=== PATIENT | female | born 1970 | race Caucasian/White ===

== ENCOUNTER 2022-08-04 11:57 | Day surgery (SDC) | payer BC, SELFPAY ==
[2022-07-29 15:32] VITALS: BMI 31.6
[2022-08-04 12:28] VITALS: BMI 31.2
[2022-08-04 12:36] VITALS: BP 119/66; PULSE 69; RESP 16; TEMP 36.8; O2SAT 97
--- NOTE | 2022-08-04 12:58 | HO.ANESPROP2 ---
HPI - Anesthesia Eval Consult details Narrative: for colonoscopy FOR[facility], LAT[facility] Past Medical History Medical History (Updated 07/29/22 @ 15:26 by Emerald Goode RN) Anaplasmosis Diverticulosis Hypercholesterolemia Varicose veins of legs Family History Family history of problems with anesthesia: No Surgical History Surgical History (Updated 07/29/22 @ 15:26 by Emerald Goode RN) No pertinent past surgical history History of Problems with Anesthesia: No Social History Social History Patient Tobacco Use Status: Former Tobacco user Quit Date: 2006 Tobacco use type: Cigarette Cigarettes Per Day: 20 Years Smoked: 18 Smoked in Last 30 Days: No Use of substances other than those prescribed or required for medical reasons: No Advance Directives: No Advance Directives Information Provided: Yes Meds Allergies Allergy/AdvReac Type Severity Reaction Status Date / Time cat dander [cats] Allergy Unknown Verified 08/04/22 12:27 dog dander [dogs] Allergy Unknown Verified 08/04/22 12:27 pollen extracts Allergy Unknown Verified 08/04/22 12:27 ibuprofen AdvReac Unknown stomach Verified 08/04/22 12:27 upset Home Medications Medication Instructions Recorded Confirmed Last Taken Type Probiotic 1 tab PO DAILY 07/29/22 07/29/22 Unknown History cyanocobalamin (vitamin B-12) 1,000 mcg PO DAILY 07/29/22 07/29/22 Unknown History 1,000 mcg tablet (Vitamin B-12) Vitamin D2 08/04/22 08/04/22 Unknown History Exam Exam Date and Time: August 04, 2022 1258 Height,Weight and Vital Signs: Height 5 ft 5 in Weight 85.185 kg Last Vital Signs Temp 98.2 F 08/04/22 12:36 Pulse 69 08/04/22 12:36 Resp 16 08/04/22 12:36 BP 119/66 08/04/22 12:36 Pulse Ox 97 08/04/22 12:36 O2 Del Method 08/04/22 12:36 Airway Mallampati Class: I TM Dist: >3cm Neck ROM: Full Loose/Missing/Broken Teeth: No Heart: ok Lungs: ok Assessment and Plan Final Anesthetic Review Family History of Problems with Anesthesia: No History of Problems with Anesthesia: No NPO: Yes ASA Class: II Final Preanesthetic Review: No Changes in Pt Med Stat, Meds/Allgs Chart Reviewed, Consent Obtained/Reviewed and Anes Risks/Benef Reviewed Patient Risk: Low Procedure Risk: Low Anesthetic Plan Anesthetic Plan: MAC: and Agree w/ Assess. and Plan Disposition: Standard PACU
--- NOTE | 2022-08-04 13:04 | MHC.SHP ---
Pre-Procedural Eval Section A Date of Service: 08/04/22 The patient is an INPATIENT: No Changes since office visit: No Cold of Flu in the past 2 weeks, No New Medical Problems, No Changes in Medication and No Patient answered all questions The History & Physical has been completed within 30 days and I have reviewed it.: Yes Section B Chief Complaint: screening Allergies: Allergies Allergy/AdvReac Type Severity Reaction Status Date / Time cat dander [cats] Allergy Unknown Verified 08/04/22 12:27 dog dander [dogs] Allergy Unknown Verified 08/04/22 12:27 pollen extracts Allergy Unknown Verified 08/04/22 12:27 ibuprofen AdvReac Unknown stomach Verified 08/04/22 12:27 upset Plan I have reviewed the history and physical and performed a pertinent physical examination on my patient. No changes have occurred unless specified.
[2022-08-04] MEDS: Lactated Ringers 1,000 ML 100 ML IVCONT (13:31)
--- NOTE | 2022-08-04 13:37 | P.BOP_ITS ---
Brief Operative Note Date of Service: 08/04/22 Pre-op diagnosis: screening Post-op diagnosis: same Surgeon: Maurilio Waters Was an Founder And Chief Executive Officer used for this Procedure?: No Estimated blood loss (mL): 5 Pathology: other Condition: stable Disposition: PACU
[2022-08-04 13:44] VITALS: BP 113/67; PULSE 77; RESP 18; TEMP 36.4; O2SAT 96
[2022-08-04 13:59] VITALS: BP 116/67; PULSE 72; RESP 18; TEMP 36.4; O2SAT 97
--- NOTE | 2022-08-05 14:16 | OP_ITS ---
SURGEON: Maurilio Waters MD PREOPERATIVE DIAGNOSIS: POSTOPERATIVE DIAGNOSIS: PROCEDURE PERFORMED: Colonoscopy to the terminal ileum with biopsy performed on 08/04/2022. ESTIMATED BLOOD LOSS: COMPLICATIONS: ANESTHESIA: ASSISTANTS: SPECIMENS: DESCRIPTION OF PROCEDURE: History and physical performed. The risks and benefits of the procedure were explained to the patient and informed consent was obtained. The patient was placed in the left lateral decubitus position. A digital rectal exam was performed and was found to be normal. The Olympus pediatric video colonoscope was introduced into the rectum and advanced to the cecum without difficulty. The cecum was identified by transillumination, palpation, identification of ileocecal valve. Examination was performed. The scope was removed. She tolerated the procedure well and was taken to recovery in stable condition. FINDINGS: The terminal ileum was examined and appeared normal. This was examined for approximately 20 cm. The biopsies were obtained randomly from the terminal ileum. The visualized colonic mucosa was within normal limits without evidence of masses or ulcers. The quality of the prep was excellent. A single polyp measuring 6 mm was identified at 40 cm from the anal verge. This was removed with a snare and recovered via suction. Random sigmoid biopsies were obtained because of the patient's history of diarrhea. There was moderate sigmoid diverticulosis with a few scattered diverticula throughout the remainder of the colon. Retroflexed examination was normal. IMPRESSION: Colon polyp. RECOMMENDATION: Follow up the biopsy results. MD TRUDI Horowitz/YOGI / [id number]
== END 2022-08-04 14:25 | disposition home or self-care (01) ==
PROVIDERS: PCP Nurse Practitioner Adult Health; Visit Provider Internal Medicine Gastroenterology
PROC: 0DJD8ZZ Inspection of Lower Intestinal Tract, Via Natural or Artificial Opening Endoscopic (ICD-10-PCS; CPT 45378; principal; 2022-08-04 13:00)
DX: Z12.11 Encounter for screening for malignant neoplasm of colon (principal); D12.5 Benign neoplasm of sigmoid colon; K57.30 Diverticulosis of large intestine without perforation or abscess without bleeding; K58.0 Irritable bowel syndrome with diarrhea; A79.82 Anaplasmosis [A. phagocytophilum]; E78.00 Pure hypercholesterolemia, unspecified; I83.93 Asymptomatic varicose veins of bilateral lower extremities; Z87.891 Personal history of nicotine dependence; Z79.899 Other long term (current) drug therapy
CPT/HCPCS: 45385; 45380; 88305